=== PATIENT | female | born 1960 | race Caucasian/White ===

== ENCOUNTER 2024-03-15 08:35 | Emergency (ER) | payer BC, OTHER ==
[~2024-03-15] VITALS: Ht 165.1 cm; Wt 84.4 kg
[2024-03-15 08:40] VITALS: BP_SYST 128; PULSE 74; RESP 18; TEMP 97.4; O2SAT 97
[2024-03-15] MEDS ORDERED: METH-776 PO (08:59)
[2024-03-15] MEDS ORDERED: CLIN-142 PO (08:59)
[2024-03-15] MEDS ORDERED: OMEP20CA15 PO (09:02)
[2024-03-15] MEDS: METOCLOPRAMIDE HCL 10 MG/2 ML VIAL IM ONE (09:24)
[2024-03-15] MEDS: KETOROLAC TROMETHAMINE 30 MG VIAL IM ONE (09:25)
[2024-03-15 09:32] VITALS: BP_SYST 128; PULSE 74; RESP 18; TEMP 97.4; O2SAT 97
== END 2024-03-15 09:32 | disposition home or self-care (01) ==
LOC: SED 08:35
DX: J32.9 Chronic sinusitis, unspecified (principal); R09.82 Postnasal drip; K21.9 Gastro-esophageal reflux disease without esophagitis
CPT/HCPCS: 99284; 96374; 96372; J1885; J2765